=== PATIENT | female | born 1965 | race Caucasian/White ===

== ENCOUNTER 2021-01-18 06:24 | Day surgery (SDC) | payer BC ==
[2021-01-12 16:38] LABS: EOSINOPHILS # (AUTO) 0.2 X10'3 (0-0.9); EOSINOPHILS % (AUTO) 4.8 % (0-6); LYMPHOCYTES # (AUTO) 1.7 X10'3 (1.1-4.8); LYMPHOCYTES % (AUTO) 38.6 % (21-51); MEAN CORPUSCULAR HEMOGLOBIN 29.8 PG (27.0-31.0); MEAN CORPUSCULAR HGB CONC 33.3 g/dL (33.0-36.5); MEAN CORPUSCULAR VOLUME 89.5 FL (78-98); MEAN PLATELET VOLUME 9.5 FL (7.4-10.4); MONOCYTES # (AUTO) 0.4 X10'3 (0-0.9); MONOCYTES % (AUTO) 9.4 % (2-12); NEUTROPHILS % (AUTO) 46.2 % (42-75); PRE OP HEMATOCRIT 38.9 % (35.0-45.0); PRE OP PLATELET COUNT 246 X10'3 (140-440); RED BLOOD COUNT 4.35 X10'6 (4.20-5.60); RED CELL DISTRIBUTION WIDTH 12.9 % (11.5-14.5)
[2021-01-12 16:51] LABS: PRE OP PROTIME 10.4 SECONDS (9.0-12.0)
[2021-01-12 16:59] LABS: ALBUMIN 4.2 G/DL (3.4-5.0); ALBUMIN/GLOBULIN RATIO 1.3 (1.1-1.5); ALKALINE PHOSPHATASE 74 IU/L (46-116); BLOOD UREA NITROGEN 14 MG/DL (7-18); BUN/CREATININE RATIO 25.5 (6.6-38.0); CALCIUM 8.4 MG/DL (8.5-10.1); CHLORIDE 106 MMOL/L (99-107); CREATININE 0.55 MG/DL (0.40-0.90); PRE OP ALT 33 U/L (30-65); PRE OP ANION GAP 10 (8-16); PRE OP AST 20 U/L (10-37); PRE OP BILIRUB, TOTAL 0.4 MG/DL (0.0-1.0); PRE OP GLUCOSE 90 MG/DL (70-104); PRE OP SODIUM 144 MMOL/L (135-145); TOTAL CARBON DIOXIDE 27.8 MMOL/L (24-32); TOTAL PROTEIN 7.4 G/DL (6.4-8.2); eGFR > 90 ML/MIN
[2021-01-18] VITALS (18 sets, daily range): BP systolic 101–147; BP diastolic 50–82
[~2021-01-18] VITALS: Ht 180.3 cm; Wt 86.2 kg
[~2021-01-18 06:24] MED LIST: ATOR10TA70 PO; TERB250T4 PO; acetaminophen 325mg tablet PO ONE; cefazolin/dext.iso 2gm/100ml IV ONE; celeCOXIB 100mg capsule PO ONE; famotidine 20mg tablet PO ONE; gabapentin 300mg capsule PO ONE; metoclopramide 5 mg/ml inj IV ONE; oxyCODONE SR 10mg (sust. release) tab -2 tabs (20mg) PO ONE; ringers solution, lacted 1,000 ML IV SCH; tranexamic acid 1gm/0.7% sal. 100 ML IV ONE; vancomycin 1,500 MG in NS 300ml IV soln IV ONE
[2021-01-18] MEDS ORDERED: HYDROmorphone inj. 0.5 MG/0.5 ML DISP.SYRIN IV PRN (06:25)
[2021-01-18] MEDS ORDERED: HYDROmorphone 1 mg/ml syringe IV PRN (06:25)
[2021-01-18] MEDS ORDERED: magnesium hydroxide 30ml (MOM) UD suspension PO PRN (06:25)
[2021-01-18] MEDS: potassium cl 20mEq in 1/2 NS 1,000 ML IV SCH ×3 (06:25→22:25)
[2021-01-18] MEDS ORDERED: diphenhydrAMINE 25mg capsule PO PRN ×2 (06:25)
[2021-01-18] MEDS ORDERED: bisacodyl 10mg suppository rectal RC PRN (06:25)
[2021-01-18] MEDS ORDERED: acetaminophen 325mg tablet PO PRN (06:25)
[2021-01-18] MEDS ORDERED: ondansetron/PF 4mg/2ml inj IV PRN ×2 (06:25→09:55)
[2021-01-18] MEDS ORDERED: oxyCODONE/APAP 10/325mg tablet PO PRN (06:25)
[2021-01-18] MEDS: ascorbic acid 500mg tablet PO SCH ×2 (08:00→20:09)
[2021-01-18] MEDS: aspirin 325mg tablet PO SCH (08:30)
[2021-01-18] MEDS ORDERED: ringers solution, lacted 1,000 ML IV SCH (09:55)
[2021-01-18] MEDS ORDERED: morphine 4 MG/ML inj SYRINge IV PRN (09:55)
[2021-01-18] MEDS ORDERED: meperidine/PF 25mg/ml syringe IV PRN ×3 (09:55)
[2021-01-18] MEDS ORDERED: morphine 2 MG/ML inj. syringe IV PRN (09:55)
[2021-01-18] MEDS ORDERED: proCHLORperazine 10 MG/2 ml inj IV PRN (09:55)
--- NOTE | 2021-01-18 10:16 | NUR ---
PT DECLINED NARCOTIC PRE-OP. DR SAUCEDA AT THE BEDSIDE AND AWARE.
[2021-01-18] MEDS ORDERED: cloNIDine hcl/PF 100mcg/ml inj ONE (10:41)
[2021-01-18] MEDS ORDERED: epiNEPHrine 1 mg/ml inj ONE (10:42)
[2021-01-18] MEDS ORDERED: ROPIVAcaine 0.5% (5mg/ml) 30ml vial ONE ×2 (10:42→12:35)
[2021-01-18] MEDS ORDERED: ketorolac trometh. 30mg/ml inj. ONE (10:42)
[2021-01-18] MEDS ORDERED: vancomycin 1,000mg inj ONE (10:42)
[2021-01-18] MEDS ORDERED: MIDAZolam 1 MG/ML 5ML VIAL ONE (11:03)
[2021-01-18] MEDS ORDERED: ROPIVAcaine 0.2% (10 MG/5 ML) BOLUS INJECTION ADDCANAL PRN (12:15)
--- NOTE | 2021-01-18 13:10 | NUR ---
ADMITTED TO PACU FROM OR ACCOMPANIED BY ANESTHESIA. INTIAL PHYSICAL ASSESSMENT DONE AND RECORDED. REPORT RECEIVED FROM ANESTHESIA.
--- NOTE | 2021-01-18 14:10 | NUR ---
PACU DISCHARGE CRITERIA MET, REPORT GIVEN TO FLOOR. DENIES PAIN OR DISCOMFORT. PT IS STABLE AND ADEQUATELY RECOVERED FROM ANESTHESIA. PT HAS STABLE AIRWAY PATENCY, RESPIRATORY FUNCTION TO INCLUDE RESPIRATORY RATE AND O2 SAT. HEART RATE, BLOOD PRESSURE STABLE AND HYDRATION ADEQUATE. MENTAL STATUS IS APPROPRIATE. PAIN AND NAUSEA CONTROLLED. REFER TO PACU SPREADSHEET FOR VITAL SIGNS.
[2021-01-18] MEDS: ROPIVAcaine 0.2%/PF PUMP/bolus 545 ML ADDCANAL SCH (14:15)
--- NOTE | 2021-01-18 14:15 | NUR ---
report received from Jackie KWONG
[2021-01-18] MEDS ORDERED: tranexamic acid 1gm/0.7% sal. 100 ML IV ONE (16:30)
[2021-01-18] MEDS: cefazolin/dext.iso 2gm/100ml 100 ML IV SCH ×2 (17:37→23:50)
[2021-01-18] MEDS: gabapentin 300mg capsule PO SCH (20:09)
[2021-01-18] MEDS: atorvastatin 10mg tablet PO SCH (20:09)
[2021-01-18] MEDS: multivitamins, therapeutics tablet PO SCH (20:09)
[2021-01-18] MEDS ORDERED: VANCOMYCIN 1,500MG inj. 1,500 MG in normal saline 500ml IV soln 500 ML IV SCH (21:00)
[2021-01-18] MEDS ORDERED: sennosides 8.6mg tablet PO SCH (21:00)
[2021-01-18] MEDS: terbinafine 250mg tablet PO SCH (22:05)
--- NOTE | 2021-01-19 00:05 | NUR ---
Received report from Deborah [facility].
[2021-01-19 02:00] VITALS: BP 123/72
[2021-01-19] MEDS: oxyCODONE/APAP 10/325mg tablet PO PRN ×2 (05:55→16:17)
[2021-01-19 06:00] VITALS: BP 138/62
--- NOTE | 2021-01-19 06:19 | NUR ---
Report to Katya KWONG.
[2021-01-19] MEDS: potassium cl 20mEq in 1/2 NS 1,000 ML IV SCH (06:25)
[2021-01-19 06:31] LABS: BASOPHILS % (AUTO) 0.4 % (0-1); EOSINOPHILS # (AUTO) 0.1 X10'3 (0-0.9); EOSINOPHILS % (AUTO) 1.1 % (0-6); HEMATOCRIT 33.4 % (35.0-45.0); LYMPHOCYTES # (AUTO) 1.3 X10'3 (1.1-4.8); LYMPHOCYTES % (AUTO) 18.1 % (21-51); MEAN CORPUSCULAR HEMOGLOBIN 29.7 PG (27.0-31.0); MEAN CORPUSCULAR VOLUME 89.9 FL (78-98); MEAN PLATELET VOLUME 9.2 FL (7.4-10.4); MONOCYTES # (AUTO) 0.6 X10'3 (0-0.9); MONOCYTES % (AUTO) 8.1 % (2-12); NEUTROPHILS # (AUTO) 5.2 X10'3 (1.8-7.7); NEUTROPHILS % (AUTO) 72.3 % (42-75); PLATELET COUNT 201 X10'3 (140-440); RED BLOOD COUNT 3.72 X10'6 (4.20-5.60); RED CELL DISTRIBUTION WIDTH 13.3 % (11.5-14.5); WHITE BLOOD COUNT 7.2 X10'3 (4.5-11.0)
[2021-01-19 07:04] LABS: ANION GAP 9 (8-16); CHLORIDE 109 MMOL/L (99-107); POTASSIUM 3.9 MMOL/L (3.5-5.1); SODIUM 144 MMOL/L (135-145); TOTAL CARBON DIOXIDE 25.9 MMOL/L (24-32)
[2021-01-19] MEDS: terbinafine 250mg tablet PO SCH (07:52)
[2021-01-19] MEDS: ascorbic acid 500mg tablet PO SCH (07:53)
[2021-01-19] MEDS: gabapentin 300mg capsule PO SCH ×2 (07:53→13:46)
[2021-01-19] MEDS: atorvastatin 10mg tablet PO SCH (07:53)
[2021-01-19] MEDS: multivitamins, therapeutics tablet PO SCH (07:53)
[2021-01-19] MEDS: aspirin 325mg tablet PO SCH (07:53)
--- NOTE | 2021-01-19 11:54 | NUR ---
Joint surgery Consult: Pt s/p L knee surgery this admit. Pt seen by HERBERT for written/verbal high protein ed w/ RD contact information provided. HERBERT encouraged pt to contact dietitian's office if further questions/concerns. Addendum: 01/19/21 at [address] Amended: Links added.
[2021-01-19 14:00] VITALS: BP 134/58
[2021-01-19] MEDS ORDERED: ASPI-1 PO (15:39)
[2021-01-19] MEDS: ROPIVAcaine 0.2%/PF PUMP/bolus 545 ML ADDCANAL SCH (16:31)
[2021-01-19] MEDS ORDERED: celeCOXIB 100mg capsule PO SCH (20:00)
== END 2021-01-19 16:45 | disposition home or self-care (01) ==
LOC: PAS 06:24 → ORTHO 4S 14:48 → PAS 14:48
PROVIDERS: ATTEND Orthopaedic Surgery
DX: M17.12 Unilateral primary osteoarthritis, left knee (principal); M21.162 Varus deformity, not elsewhere classified, left knee; G89.18 Other acute postprocedural pain; M19.041 Primary osteoarthritis, right hand; M19.042 Primary osteoarthritis, left hand; Z96.651 Presence of right artificial knee joint; Z98.890 Other specified postprocedural states; Z72.89 Other problems related to lifestyle; Z79.82 Long term (current) use of aspirin; Z79.899 Other long term (current) drug therapy; Z20.822 Contact with and (suspected) exposure to COVID-19; Z79.01 Long term (current) use of anticoagulants
CPT/HCPCS: 27447; 36415; 64448; 73560; 76937; 80051; 80053; 82948; 85025; 85610; 85730; 86885; 86900; 86901; 87081; 93005; 97116; 97161; 97530; C1713; C1776; J0171; J0735; J1885; J2250; J2765; J2795; J3370; J7040; J7120; U0003; U0005; Z7506; Z7508; Z7512; A4215; A7000; G0378; J3480